=== PATIENT | male | born 1955 | race Caucasian/White ===

== ENCOUNTER 2022-09-21 08:11 | Outpatient (CLI) | payer MEDICARE, SELFPAY | END 2022-09-21 08:12 | disposition home or self-care (01) | PROVIDERS: PCP Family Medicine; Visit Provider Family Medicine | DX: Z00.00 Encounter for general adult medical examination without abnormal findings (principal); I10 Essential (primary) hypertension; Z13.6 Encounter for screening for cardiovascular disorders; Z12.5 Encounter for screening for malignant neoplasm of prostate | CPT/HCPCS: 80053; 80061; 84153 ==

== ENCOUNTER 2023-10-04 07:50 | Outpatient (CLI) | payer MEDICARE, SELFPAY | END 2023-10-04 07:51 | disposition home or self-care (01) | LOC: NFLDREF 10-06 07:55 | PROVIDERS: PCP Family Medicine; Referring Provider Family Medicine; Visit Provider Family Medicine | DX: E78.5 Hyperlipidemia, unspecified (principal); I10 Essential (primary) hypertension; Z12.5 Encounter for screening for malignant neoplasm of prostate | CPT/HCPCS: 80053; 80061; G0103 ==

== ENCOUNTER 2023-10-21 11:18 | Outpatient (CLI) | payer MEDICARE, SELFPAY ==
--- NOTE | 2023-10-21 13:06 | W.ANESCHARGE ---
Anesthesia Charges Start Date/Time Anesthesia Start Date: 10/21/23 Anesthesia Start Time: 12:31 Stop Date/Time Anesthesia Stop Date: 10/21/23 Anesthesia Stop Time: 13:08 Summary Extremes of Age - Over 70 or under 1: [employer]
--- NOTE | 2023-10-21 13:22 | W.ANESCHARGE ---
Anesthesia Charges Start Date/Time Anesthesia Start Date: 10/21/23 Anesthesia Start Time: 12:31 Stop Date/Time Anesthesia Stop Date: 10/21/23 Anesthesia Stop Time: 13:08 Summary Extremes of Age - Over 70 or under 1: MDA
== END 2023-10-21 11:19 | disposition home or self-care (01) ==
LOC: OP CLINIC 11:18
PROVIDERS: PCP Family Medicine; Visit Provider Surgery
DX: Z12.11 Encounter for screening for malignant neoplasm of colon (principal); K63.5 Polyp of colon; K57.30 Diverticulosis of large intestine without perforation or abscess without bleeding
CPT/HCPCS: 00811; 45385; 88305; 99100; J2704

== ENCOUNTER 2023-11-02 08:04 | Outpatient (CLI) | payer MEDICARE, SELFPAY | END 2023-11-02 08:05 | disposition home or self-care (01) | LOC: NFLDREF 11-03 06:22 | PROVIDERS: PCP Family Medicine; Referring Provider Family Medicine; Visit Provider Family Medicine | DX: R82.998 Other abnormal findings in urine (principal); G47.00 Insomnia, unspecified; R61 Generalized hyperhidrosis; I10 Essential (primary) hypertension; I73.00 Raynaud's syndrome without gangrene | CPT/HCPCS: 87086 ==

== ENCOUNTER 2024-11-13 09:16 | Outpatient (CLI) | payer MEDICARE, SELFPAY | END 2024-11-13 09:17 | disposition home or self-care (01) | LOC: NFLDREF 11-21 07:47 | PROVIDERS: PCP Family Medicine; Referring Provider Family Medicine; Visit Provider Family Medicine | DX: E78.5 Hyperlipidemia, unspecified (principal); I10 Essential (primary) hypertension; Z12.5 Encounter for screening for malignant neoplasm of prostate | CPT/HCPCS: 80053; 80061; G0103 ==

== ENCOUNTER 2025-04-04 10:00 | Outpatient (CLI) | payer MEDICARE, SELFPAY | END 2025-04-04 10:01 | disposition home or self-care (01) | LOC: MRI 10:01 | PROVIDERS: PCP Family Medicine; Visit Provider Radiology Radiation Oncology | DX: C61 Malignant neoplasm of prostate (principal) | CPT/HCPCS: 72195 ==